=== PATIENT | female | born 1995 | race Asian ===

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

== ENCOUNTER 2017-10-02 00:03 | Emergency (ER) | payer BC ==
--- NOTE | 2017-10-02 00:54 | ED ---
Skin Complaint - HPI Summary HPI Summary: 22F presents with hives for two days. She states she just got over a viral illness 4 days before. She states the rash started all over her body sparing the legs but since spread up to face. She states the rash is itchy. She has never had the rash before. she denies any new products or food. She denies any fever. She denies any chest pain, SOB, or difficulty swallowing. She denies any abdominal pain, nausea, or vomiting. She states she was seen at [facility] and she was given Benadryl, prednisone, and rantidine. She states the Benadryl helped the most. She states she stopped the steroid because was worried is going to get infection. She states the rash has gotten better throughout the day. - History of Current Complaint Chief Complaint: EDRashSkinAbscess Time Seen by Provider: 10/02/17 00:39 Stated Complaint: HIVES Pain Intensity: 0 - Allergy/Home Medications Allergies/Adverse Reactions: Allergies Allergy/AdvReac Type Severity Reaction Status Date / Time No Known Allergies Allergy Verified 12/07/16 17:45 PMH/Surg Hx/FS Hx/Imm Hx Endocrine/Hematology History: Denies: Hx Anticoagulant Therapy Cardiovascular History: Denies: Hx Hypertension - Immunization History Date of Tetanus Vaccine: utd Date of Influenza Vaccine: 07/2017 Infectious Disease History: No Infectious Disease History: Denies: Traveled Outside the [place] in Last 30 Days - Family History Known Family History: Positive: None Negative: Blood Disorder - Social History Alcohol Use: None Substance Use Type: Reports: None Smoking Status (MU): Never Smoked Tobacco Review of Systems Negative: Fever Negative: Chest Pain Negative: Shortness Of Breath Positive: Rash All Other Systems Reviewed And Are Negative: Yes Physical Exam Triage Information Reviewed: Yes Vital Signs On Initial Exam: Initial Vitals Temp Pulse Resp BP Pulse Ox 99.5 F 104 16 135/91 93 10/02/17 00:05 10/02/17 00:05 10/02/17 00:05 10/02/17 00:05 10/02/17 00:05 Vital Signs Reviewed: Yes Appearance: Positive: Well-Appearing Skin: Positive: Warm, Dry, Other - urticaria across truck and arms Head/Face: Positive: Normal Head/Face Inspection Eyes: Positive: Normal, EOMI, VIDAL, Conjunctiva Clear ENT: Positive: Normal ENT inspection, Pharynx normal, TMs normal Respiratory/Lung Sounds: Positive: Clear to Auscultation, Breath Sounds Present Cardiovascular: Positive: Normal, RRR Abdomen Description: Positive: Nontender, Soft Bowel Sounds: Positive: Present Musculoskeletal: Positive: Normal Neurological: Positive: Normal Psychiatric: Positive: Normal - Joseph Coma Scale Coma Scale Total: 15 Diagnostics - Vital Signs Vital Signs Temp Pulse Resp BP Pulse Ox 10/02/17 00:05 99.5 F 104 16 135/91 93 - Laboratory Lab Statement: Any lab studies that have been ordered have been reviewed, and results considered in the medical decision making process. Course/Dx - Course Course Of Treatment: 22F presents with hives for two days. She states she just got over a viral illness 4 days before. She states the rash started all over her body sparing the legs but since spread up to face. She states the rash is itchy. She has never had the rash before. she denies any new products or food. She denies any fever. She denies any chest pain, SOB, or difficulty swallowing. She denies any abdominal pain, nausea, or vomiting. She states she was seen at [facility] and she was given Benadryl, prednisone, and rantidine. She states the Benadryl helped the most. She states she stopped the steroid because was worried is going to get infection. She states the rash has gotten better throughout the day. on exam has urticaria across trunk and arms. lungs CTA. pharnyx normal. discussed that hives get better and worst with histamine reaction. told can add hydrocoritisone on. patient understand and agrees with plan. - Differential Diagnoses - Skin Complaint Differential Diagnoses: Allergic Reaction, Contact Dermatitis, Urticaria - Diagnoses Provider Diagnoses: Rash Discharge - Discharge Plan Condition: Good Disposition: HOME Patient Education Materials: Urticaria (ED) Referrals: Non Staff,Doctor [Primary Care Provider] - Additional Instructions: Follow plan in place by [facility] Can apply cream with hydrocortisone to area for itchy Return to ED if develop shortness of breath, difficulty swallowing or any new or worsening symptoms
[2017-10-02 01:00] VITALS: BP 128/71
== END 2017-10-02 00:59 | disposition home or self-care (01) ==
LOC: ED 00:03
DX: R21 Rash and other nonspecific skin eruption (principal); L50.9 Urticaria, unspecified
CPT/HCPCS: 99281